=== PATIENT | male | born 2000 | race African-American/Black ===

== ENCOUNTER → 2022-10-31 15:54 | Outpatient (CLI) | payer OTHER, SELFPAY ==
--- NOTE | 2022-10-31 16:01 | DI.MRI.S_ITS ---
PROCEDURE: MR HEAD/BRAIN WO/W CON INDICATIONS: HEADACHES TECHNIQUE: Noncontrast axial T1 spin echo, axial T2 fast spin echo, sagittal and axial FLAIR, coronal T2 fast spin echo, axial gradient echo, axial diffusion and ADC through the brain. After the administration of contrast, axial and coronal and sagittal 3D VIBE or T1 spin echo with fat saturation through the brain. COMPARISON: None. FINDINGS: Image quality: Excellent. CSF Spaces: Basal cisterns are patent. No extra-axial fluid collections. Ventricles are normal in size and shape. Brain: No midline shift. No intracranial bleeds or masses. No abnormal intracranial enhancement. The brainstem appears normal. Diffusion-weighted images demonstrate no acute ischemic insults. No chronic ischemic insults. Normal intravascular flow voids are present. Skull and face: Calvarial marrow is normal in signal. Orbits appear normal. Sinuses: Sinuses and mastoids appear clear. IMPRESSION: Unremarkable intracranial study, without an imaging explanation found for the patient's presenting history of headache. No masses or abnormal enhancement can be seen. Dictated by: Panchito Parker M.D. on 10/31/2022 at 15:54 Approved by: Panchito Parker M.D. on 10/31/2022 at 15:55
== END ==
DX: R51.9 Headache, unspecified (principal)
CPT/HCPCS: 70553

== ENCOUNTER 2023-10-10 01:32 | Emergency (ER) | payer OTHER, SELFPAY ==
[2023-10-10 01:50] VITALS: BP 146/81; PULSE 92; RESP 16; TEMP 36.9; O2SAT 99; BMI 23.0
--- NOTE | 2023-10-10 02:03 | DI.RAD.S_ITS ---
PROCEDURE: XR WRIST RT MIN 3V INDICATIONS: Fall TECHNIQUE: 4 views of the wrist were acquired. COMPARISON: None. FINDINGS: Bones: Angulated fracture of the 5th metacarpal neck is noted. Carpal bones are normally aligned. No additional osseous fracture is seen. Soft tissues: No suspicious soft tissue calcifications. IMPRESSION: Angulated fracture of the 5th metacarpal neck. No acute wrist fracture or dislocation. There is no significant discrepancy when compared to the overnight preliminary report. Approved by: Alexander Moe M.D. on 10/10/2023 at 8:14
--- NOTE | 2023-10-10 02:03 | DI.RAD.S_ITS ---
PROCEDURE: XR HAND RT MIN 3V INDICATIONS: Fall TECHNIQUE: Three views of the hand acquired. COMPARISON: None. FINDINGS: Bones: There is a fracture of the 5th metacarpal neck with volar angulation and likely mild comminution. No additional osseous fracture is seen. Fourth and 5th fingers are held in flexion throughout the exam. Soft tissues: No suspicious soft tissue calcifications. IMPRESSION: Comminuted angulated fracture of the 5th metacarpal neck. There is no significant discrepancy when compared to the overnight preliminary report. Approved by: Alexander Moe M.D. on 10/10/2023 at 8:13
--- NOTE | 2023-10-10 02:58 | ED.UPPEXIN ---
HPI - Extremity Injury (Upper) General Chief Complaint: Extremity Injury, Upper Stated Complaint: RT HAND INJURY Time Seen by Provider: 10/10/23 02:45 Source: patient Mode of arrival: Ambulatory History of Present Illness HPI narrative: Patient is a healthy 23-year-old male who presents today with right hand pain. He reports he got home from work he was walking up stairs when he tripped and fell landing on his right hand. No other injury pain at the 5th MCP joint. Denies hitting or punching anything. Has pain into his wrist as well. Related Data Previous Rx's Medication Instructions Recorded hydrocodone 5 mg-acetaminophen 325 1 tab PO Q6H PRN pain #10 tabs 10/10/23 mg tablet Allergies Allergy/AdvReac Type Severity Reaction Status Date / Time No Known Drug Allergies Allergy Verified 10/10/23 03:09 Exam Initial Vital Signs Initial Vital Signs: Vital Signs Temperature 98.4 F 10/10/23 01:50 Pulse Rate 92 H 10/10/23 01:50 Respiratory Rate 16 10/10/23 01:50 Blood Pressure 146/81 H 10/10/23 01:50 Pulse Oximetry 99 10/10/23 01:50 Oxygen Delivery Method Room Air 10/10/23 01:50 GENERAL: Well-appearing, well-nourished and in no acute distress. CARDIOVASCULAR: peripheral pulses in tact, cap refill <2 sec RESPIRATORY: No respiratory distress, speaks in full sentences without difficulty EXTREMITIES: Normal range of motion, no clubbing or edema. Neurovascularly intact Right hand tender at 5 MCP, no gross bony deformity wrist no gross deformity distal radial pulse intact NEUROLOGICAL: Cranial nerves II through XII grossly intact. Normal gait and speech. SKIN: Warm, dry, no petechiae, no rashes or lesions. Procedures Orthopedic Splinting/Casting Injury #1: Side: right Upper Extremity Injury Location: hand Upper Extremity Immobilizer: ulnar gutter Post splinting neuro exam: intact Post splinting vascular exam: intact Placed by: Nursing Course Orders Ordered: ED Orders 10/10/23 02:03 XR hand RT min 3V Stat XR wrist RT min 3V Stat Discontinued Medications Hydrocodone Bitart/Acetaminophen (Hydrocodone/Acet 5/325 Prepack) 1 bottle MISC DIRECTED ONE Stop: 10/10/23 03:04 Last Admin: 10/10/23 03:16 Dose: 1 bottle Documented By: BB Vital Signs Vital signs: Vital Signs - 8 hr 10/10/23 01:50 10/10/23 03:27 Temperature 98.4 F Pulse Rate 92 H 89 Respiratory Rate 16 17 Blood Pressure 146/81 H 124/69 Pulse Oximetry 99 100 Oxygen Delivery Method Room Air Room Air MDM - Extremity Injury (Upper) Imaging Data Extremity x-ray #1: My Impression: 5th MCP fracture Radiologist's Impression: 5th metacarpal bone fracture Extremity x-ray #2: My Impression: Negative Radiologist's Impression: No carpal bone fracture MDM Narrative Medical decision making narrative: Patient 23-year-old male presents today with right hand pain after fall. He has a 5th metacarpal fracture. Denies hitting anything or punching anything. He is splinted given pain medication and instructed to follow-up with ortho Discharge Plan Departure Patient Disposition: Home Clinical Impression: Boxer's fracture Instructions: DI for Boxer's Fracture Activity Restrictions/Additional Instructions: *You have been diagnosed with boxer fracture *What to do: At this time keep hand in splint you will need to follow-up with orthopedic. Keep splint on at all times *Continue to take medications as directed [facility] 1 tablet every 6 hours if needed for pain Motrin 600 mg every 6 hours if needed for [id number] *Follow up with your primary care provider in 2-3 days or call [phone] Call and follow-up with orthopedic *Return to ER if you should have increasing pain numbness tingling weakness or any new, worsening or concerning symptoms CONTROLLED SUBSTANCE DISCHARGE (Narcotoic/benzodiazepine/Flexeril/Phenergan) 1. You have been prescribed narcotic medications, it does have acetaminophen/Tylenol/paracetamol in it, DO NOT TAKE MORE THAN 4,00mg in 24 hours of Tylenol. TRAMADOL DOES NOT CONTAIN TYLENOL 2. Please understand that we cannot provide further refills of narcotics, benzodiazepines or controlled substances through the ED and her pain management will need to be through your provider. 3. While on these medications you cannot drive or operate heavy machinery. 4. You cannot sign legal documents or perform any duties such as this. 5. As long as you're taking opiate pain medications he should also be taking a stool softener such as Colace, Dulcolax, MiraLAX or prune juice, to help avoid constipation. Prescriptions: New hydrocodone-acetaminophen 5-325 mg tablet 1 tab PO Q6H PRN (Reason: pain) Qty: 10 0RF Referrals: [facility] [Provider Group] Provider,Magda MCGEE [Primary Care Provider] - Stand Alone Forms: Patient Portal/API
[2023-10-10] MEDS: HYDROCODONE/ACET 5/325 PREPACK 1 BOTTLE MISC (03:16)
[2023-10-10 03:27] VITALS: BP 124/69; PULSE 89; RESP 17; O2SAT 100
== END 2023-10-10 03:28 | disposition home or self-care (01) ==
PROVIDERS: Emergency Provider Emergency Medicine
DX: S62.336A Displaced fracture of neck of fifth metacarpal bone, right hand, initial encounter for closed fracture (principal); W01.0XXA Fall on same level from slipping, tripping and stumbling without subsequent striking against object, initial encounter
CPT/HCPCS: 29125; 73110; 73130; 99282; 99283